=== PATIENT | male | born 1960 | race Caucasian/White ===

== ENCOUNTER 2022-08-31 11:07 | Outpatient (CLI) | payer MEDICAID, SELFPAY ==
[2022-08-31 18:41] LABS: Free T4 Free Thyroxine* 0.76 ng/dL (0.70-1.85)
== END 2022-08-31 11:08 | disposition home or self-care (01) ==
LOC: LONREF 11:08
PROVIDERS: PCP Family Medicine; Visit Provider Family Medicine
DX: E03.9 Hypothyroidism, unspecified (principal)
CPT/HCPCS: 84439; 84443

== ENCOUNTER 2023-12-23 09:27 | Outpatient (CLI) | payer MEDICAID, SELFPAY | END 2023-12-23 09:28 | disposition home or self-care (01) | PROVIDERS: PCP Family Medicine; Visit Provider Family Medicine | DX: R53.83 Other fatigue (principal); E03.9 Hypothyroidism, unspecified; Z12.5 Encounter for screening for malignant neoplasm of prostate | CPT/HCPCS: 80053; 84439; 84443; G0103 ==

== ENCOUNTER 2024-09-19 10:53 | Outpatient (CLI) | payer MEDICAID, SELFPAY | END 2024-09-19 10:54 | disposition home or self-care (01) | PROVIDERS: PCP Family Medicine; Visit Provider Family Medicine | DX: R53.83 Other fatigue (principal); E03.9 Hypothyroidism, unspecified; F33.1 Major depressive disorder, recurrent, moderate; M54.50 Low back pain, unspecified | CPT/HCPCS: 80048; 84439; 84443; 87086 ==

== ENCOUNTER 2024-12-26 18:04 | Emergency (ER) | payer MEDICAID, SELFPAY ==
--- OUTSIDE RECORDS SUMMARY | 2021-08-20 11:01 | XMS_ITS | Continuity of Care Document ---
Author Organization [facility] Address [address] [place] [address] Phone Care Team Providers Care Nutrition Intern Name Role Phone Will Luiz SPAULDING Unavailable Unavailabl e Medications Medication Instructions Dosage Effective Dates (start - stop) Status Comments Percocet 5 mg-325 mg Tab take 1 tablet by ORAL route every 4-6 hours as needed for pain - Active SYNTHROID (unknown strength) Not Available - Active Procedures Procedure Date INJECT SPINE C/T-Office FLUOROGUIDE FOR SPINE INJ Lidocaine injection Betamethasone acet&sod ph Omnipaque 240 20ml OFFICE/OUTPATIENT VISIT, EST INJECT SPINE C/T-Office FLUOROGUIDE FOR SPINE INJ Lidocaine injection Omnipaque 240 20ml Betamethasone acet&sod ph OFFICE/OUTPATIENT VISIT, EST RF Lumbar Or Sacral 1st L RF Lumbar/Sacral 2nd Leve Lidocaine injection Inj midazolam hydrochlori Fentanyl citrate injecito FLUOROGUIDE FOR SPINE INJECT MOD CS BY SAME PHYS, 5 YRS + OFFICE/OUTPATIENT VISIT, EST RF Lumbar Or Sacral 1st L RF Lumbar/Sacral 2nd Leve FLUOROGUIDE FOR SPINE INJECT MOD CS BY SAME PHYS, 5 YRS + Inj midazolam hydrochlori Fentanyl citrate injecito Dexamethasone sodium phos Lidocaine injection RF Lumbar/Sacral 2nd Level OFFICE/OUTPATIENT VISIT, EST Injection, bupivicaine hy Facet Inj Lumbar Facet Inj Lumbar 2nd Lvl Facet Inj Lumbar 3rd Lvl FLUOROGUIDE FOR SPINE INJ Omnipaque 240 20ml Facet Jt Inj Lumb BILATER 2nd Lvl MARCOS Facet Jt Lumb 3rd Lvl MARCOS Facet Jt Lumb FLUOROGUIDE FOR SPINE INJ Injection, bupivicaine hy Omnipaque 240 20ml Lidocaine injection OFFICE/OUTPATIENT VISIT, EST OFFICE/OUTPATIENT VISIT, EST OFFICE/OUTPATIENT VISIT, EST INJ FORAMEN EPIDURAL LS INJ FORAMEN EPIDURAL ADD-ON Omnipaque 240 20ml Lidocaine injection Betamethasone acet&sod phosp FLUOROGUIDE FOR SPINE INJECT OFFICE/OUTPATIENT VISIT, EST OFFICE/OUTPATIENT VISIT, EST OFFICE/OUTPATIENT VISIT, EST OFFICE/OUTPATIENT VISIT, EST OFFICE/OUTPATIENT VISIT, EST FLUOROGUIDE FOR SPINE INJECT Betamethasone acet&sod phosp Lidocaine injection Omnipaque 240 20ml INJECT SPINE C/T-Office Lidocaine injection Betamethasone acet&sod phosp Omnipaque 240 20ml INJECT SPINE L/S (CD) FLUOROGUIDE FOR SPINE INJECT OFFICE/OUTPATIENT VISIT, EST OFFICE/OUTPATIENT VISIT, EST OFFICE/OUTPATIENT VISIT, EST OFFICE/OUTPATIENT VISIT, EST OFFICE/OUTPATIENT VISIT, EST OFFICE/OUTPATIENT VISIT, EST OFFICE/OUTPATIENT VISIT, EST OFFICE/OUTPATIENT VISIT, EST OFFICE/OUTPATIENT VISIT, EST [employer] INJECT SPINE C/T FLUOROGUIDE FOR SPINE INJECT OFFICE/OUTPATIENT VISIT, EST [employer] INJECT SPINE C/T FLUOROGUIDE FOR SPINE INJECT [employer] Advance Directives Directive Yes / No Effective Date File Name No Information Encounters Encounter Description Practice Location Reason(s) For Visit Diagnoses Date Provider Providers Copied on Encounter [facility], [address] [place] [address], [id number] , [phone] [facility] [place] No Information 2 Will Luiz. [address] [place] [address], [id number], [place]. tel:[phone] [facility], [address] [place] [address], [id number] , [place] tel:[phone] [facility] Cervicalgia 2 Will Luiz. [address] [place] [address], [id number], [place]. tel:[phone] Referring Provider: Luiz Jha [address] [place] [address] [place], [address] . tel:[phone] OFFICE/OUTPA TIENT VISIT, EST [facility], [address] [place] [address], [id number] , [place] tel:[phone] [facility] neck pain (chief complaint) low back pain (chief complaint) CervicalgiaDegene ration of lumbar or lumbosacral intervertebral disc 2 Will Luiz. [address] [place] [address], [id number], [place]. tel:[phone] Referring Provider: Luiz Jha [address] [place], [address] . tel:[phone] [facility], [address] [place] [address] [place], [id number] , [place] tel:[phone] [facility] [place] Cervicalgia 2 Will Luiz. [address] [place] [address], [id number], [place]. [phone] Referring Provider: Luiz Jha, [address] [place] [address] [place], [address] . tel:[phone] OFFICE/OUTPA TIENT VISIT, [facility], [address] [place] [address] [place], [id number] , [place] tel: [phone] [facility] [place] low back pain (chief complaint) neck pain (chief complaint) Degeneration of lumbar or lumbosacral intervertebral discCervicalgia 2 Will Luiz. [address] [place] [address], [id number], [place]. tel:[phone] Referring Provider: Luiz Jha, [address] [place] [address] [place], [address] . tel:[phone] [facility], [address] [place] [address] [place], [id number] , [place] tel:[phone] [facility] [place] Degeneration of lumbar or lumbosacral intervertebral disc 2 Will Luiz. [address] [place] [address], [id number], [place]. tel:[phone] Referring Provider: Luiz Jha, [address] [place] [address] [place], [address] . tel:[phone] OFFICE/OUTPA TIENT VISIT, [facility], [address] [place] [address] [place], [id number] , [place] tel:[phone] [facility] [place] low back pain (chief complaint) neck pain (chief complaint) Degeneration of lumbar or lumbosacral intervertebral discCervicalgia 2 Will Luiz. [address] [place] [address], [id number], [place]. tel:[phone] Referring Provider: Luiz Jha, [address] [place] [address] [place], [address] . tel:[phone] [facility], [address] [place] [address], [id number] , [place] tel:[phone] [facility] [place] Degeneration of lumbar or lumbosacral intervertebral disc 2 Will Luiz. [address] [place] [address], [id number], [place]. [phone] Referring Provider: Luiz Jha, [address] [place] [address] [place], [address] . tel:[phone] OFFICE/OUTPA TIENT VISIT, [facility], [address] [place] [address] [place], [id number] , [place] tel:[phone] [facility] low back pain (chief complaint) neck pain (chief complaint) Degeneration of lumbar or lumbosacral intervertebral disc 2 Will Luiz. [address] [place] [address], [id number], [place]. tel:[phone] Referring Provider: Luiz Jha, [address] [place] [address] [place], [address] . tel:[phone] [facility], [address] [place] [address], [id number] , [place] tel: [phone] [facility] [place] Degeneration of lumbar or lumbosacral intervertebral disc 2 Will Luiz. [address] [place] [address], [id number], [place]. tel:[phone] Referring Provider: Luiz Jha, [address] [place] [address] [place], [address] . tel:[phone] [facility], [address] [place] [address], [id number] , [place] tel:[phone] [facility] Degeneration of lumbar or lumbosacral intervertebral discLumbago 2 Will Luiz. [address] [place] [address], [id number], [place]. tel:[phone] Referring Provider: Luiz Jha, [address] [place], [place] [address], [address] . tel:[phone] OFFICE/OUTPA TIENT VISIT, [facility], [address] [place] [address] [place], [id number] , [place] tel:[phone] [facility] low back pain (chief complaint) neck pain (chief complaint) CervicalgiaDegene ration of cervical intervertebral discLumbagoDegene ration of lumbar or lumbosacral intervertebral disc 2 Will Luiz. [address] [place] [address], [id number], [place]. tel:[phone] Referring Provider: Luiz Jha, [address] [place] [address] [place], [address] . tel:[phone] OFFICE/OUTPA TIENT VISIT, [facility], [address] [place] [address] [place], [id number] , [place] tel:[phone] [facility] No Information 2 Will Luiz. [address] [place] [address], [id number], [place]. tel:[phone] Referring Provider: Luiz Jha, [address] [place] [address] [place], [address] . tel:[phone] [facility], [address] [place] [address] [place], [id number] , [place] tel:[phone] [facility] low back pain (chief complaint) neck pain (chief complaint) CervicalgiaDegene ration of cervical intervertebral discLumbagoDegene ration of lumbar or lumbosacral intervertebral disc 2 Will Luiz. [address] [place] [address], [id number], [place]. tel:[phone] OFFICE/OUTPA TIENT VISIT, [facility], [address] [place] [address], [id number] , [place] tel:[phone] [facility] low back pain (chief complaint) neck pain (chief complaint) Degeneration of cervical intervertebral discLumbagoDegene ration of lumbar or lumbosacral intervertebral discCervicalgia 2 1 Will Luiz. [place] [place], [id number], [place]. tel:[phone] Referring Provider: Luiz Jha, [address] [place] [address] [place], [address] . tel:[phone] OFFICE/OUTPA TIENT VISIT, [facility], [address] [place] [address] [place], [id number] , [place] tel:[phone] [facility] low back pain (chief complaint) neck pain (chief complaint) LumbagoDegenerati on of cervical intervertebral discLumbago 1 Will Luiz. [address] [place] [address] [place], [id number], [place]. tel:[phone] Referring Provider: Luiz Jha, [address] [place] [address] [place], [address] . tel:[phone] OFFICE/OUTPA TIENT VISIT, [facility], [address] [place], [place] [address], [id number] , [place] tel:[phone] [facility] low back pain (chief complaint) LumbagoDegenerati on of cervical intervertebral disc Mar-0 1 Will Luiz. [address] [facility] [place], [id number], [place]. tel:[phone] Referring Provider: Luiz Jha, [address] [place] [address] [place], [address] . tel:[phone] OFFICE/OUTPA TIENT VISIT, [facility], [address] [place], [place] [address], [id number] , [place] [phone] [facility] low back pain (chief complaint) Degeneration of cervical intervertebral discLumbago 1 Will Luiz. [address] [place] [address], [id number], [place]. tel:[phone] Referring Provider: Luiz Jha, [address] [place] [address] [place], [address] . tel:[phone] OFFICE/OUTPA TIENT VISIT, [facility], [address] [place] [address] [place], [id number] , [place] tel:[phone] [facility] low back pain (chief complaint) Degeneration of cervical intervertebral discLumbago 1 Will Luiz. [address] [place] [address], [id number], [place]. [phone] Referring Provider: Luiz Jha, [address] [place] [address] [place], [address] . tel:[phone] OFFICE/OUTPA TIENT VISIT, [facility], [address] [place] [address], [id number] , [place] tel:[phone] [facility] low back pain (chief complaint) neck pain (chief complaint) Degeneration of cervical intervertebral discLumbagoDegene ration of lumbar or lumbosacral intervertebral disc 1 Will Luiz. [address] [place] [address], [id number], [place]. tel:[phone] Referring Provider: Luiz Jha, [address] [place] [address] [place], [address] . tel:[phone] [facility], [address] [place] [address], [id number] , [place] tel:[phone] [facility] neck pain (chief complaint) Degeneration of cervical intervertebral discLumbago 1 Will Luiz. [address] [place] [address], [id number], [place]. tel:[phone] Referring Provider: Luiz Jha, [address] [place] [address] [place], [address] . tel:[phone] [facility], [address] [place] [address] [place], [id number] , [place] tel:[phone] [facility] bilateral low back pain (chief complaint) Degeneration of lumbar or lumbosacral intervertebral disc 1 Will Luiz. [address] [place] [address], [id number], [place]. [phone] Referring Provider: Luiz Jha, [address] [place] [address], [address] . tel:[phone] OFFICE/OUTPA TIENT VISIT, [facility], [address] [place] [address], [id number] , [place] tel:[phone] [facility] low back pain (chief complaint) neck pain (chief complaint) LumbagoCervicalgi aDegeneration of lumbar or lumbosacral intervertebral discNeck sprain 1 Will Luiz. [address] [place] [address], [id number], [place]. [phone] Referring Provider: Luiz Jha, [address] [place] [address], [address] . tel:[phone] OFFICE/OUTPA TIENT VISIT, [facility], [address] [place] [address], [id number] , [place] tel:[phone] [facility] low back pain (chief complaint) LumbagoCervicalgi a 0 Will Luiz. [address] [place] [address], [id number], [place]. [phone] Referring Provider: Clarissa Diggs, [address] [place] [address], [address] . tel:[phone] OFFICE/OUTPA TIENT VISIT, [facility], [address] [place] [address], [id number] , [place] tel:[phone] [facility] low back pain (chief complaint) neck pain (chief complaint) LumbagoCervicalgi a 0 Will Luiz. [address] [place] [address], [id number], [place]. tel:[phone] Referring Provider: Clarissa Diggs, [address] [place] [address], [address] . tel:[phone] OFFICE/OUTPA TIENT VISIT, [facility], [address] [place] [address], [id number] , [place] [phone] [facility] low back pain (chief complaint) neck pain (chief complaint) LumbagoCervicalgi a Apr-201 0 Will Luiz. [address] [place] [address], [id number], [place]. tel:[phone] OFFICE/OUTPA TIENT VISIT, [facility], [address] [place] [address], [id number] , [place] tel:[phone] [facility] low back pain (chief complaint) neck pain (chief complaint) LumbagoCervicalgi aDegeneration of lumbar or lumbosacral intervertebral disc Sep-0 7-201 0 Will Luiz. [address] [place] [address], [id number], [place]. tel:[phone] Referring Provider: Luiz Jha, [address] [place] [address], [address] . tel:[phone] OFFICE/OUTPA TIENT VISIT, [facility], [address] [place] [address], [id number] , [place] tel:[phone] [facility] low back pain (chief complaint) LumbagoDegenerati on of lumbar or lumbosacral intervertebral disc Jan- 2-201 0 Will Luiz. [address] [place] [address], [id number], [place]. tel:[phone] OFFICE/OUTPA TIENT VISIT, [facility], [address] [place] [address], [id number] , [place] tel:[phone] [facility] bilateral low back pain (chief complaint) Degeneration of lumbar or lumbosacral intervertebral discLumbago Apr-0 6-[address] [place] [address], [id number], [place]. tel:[phone] OFFICE/OUTPA TIENT VISIT, EST [facility], [address] [place] [address] [place], [id number] , [place] tel:[phone] [facility] [place] bilateral low back pain (chief complaint) LumbagoDegenerati on of lumbar or lumbosacral intervertebral disc 0 Will Luiz. [address] [place] [address], [id number], [place]. tel:[phone] OFFICE/OUTPA TIENT VISIT, [facility], [address] [place] [address] [place], [id number] , [place] tel:[phone] [facility] [place] No Information 0 Will Liuz. [address] [place] [address], [id number], [place]. tel:[phone] [place] [address] [facility], [address] [place] [address], [id number] , [place] tel:[phone] [facility] right cervical spine pain (chief complaint) Cervicalgia 0 Will Luiz. [address] [place] [address], [id number], [place]. tel:[phone] OFFICE/OUTPA TIENT VISIT, [facility], [address] [place] [address] [place], [id number] , [place] [phone] [facility] [place] chronic pain (chief complaint) Neck sprainCervicalgia Degeneration of lumbar or lumbosacral intervertebral discDegeneration of cervical intervertebral discLumbago 0 Will Luiz. [place], [id number], [place]. tel:[phone] [facility], [address] [place] [address], [id number] , [place] tel:[phone] [facility] chronic pain (chief complaint) Neck sprainLumbagoDege neration of lumbar or lumbosacral intervertebral disc 9 Will Luiz. [address] [place] [address], [id number], [place]. tel:[phone] [facility], [address] [place] [address], [id number] , [place] [phone] [facility] bilateral neck pain (chief complaint) Degeneration of cervical intervertebral discDegeneration of cervical intervertebral disc Dec-0 3-200 9 Will Luiz. [address] [place] [address], [id number], [place]. tel:[phone] [place] [address] [facility], [address] [place] [address], [id number] , [place] [phone] [facility] chronic pain (chief complaint) Neck sprainCervicalgia Degeneration of cervical intervertebral disc Nov-2 5-200 9 Will Luiz. [address] [place] [address], [id number], [place]. tel:[phone] [place] [address], [address] [place] [address], [id number] , [place] tel:[phone] [facility] bilateral low back pain (chief complaint) LumbagoDegenerati on of lumbar or lumbosacral intervertebral disc May- 0-200 9 Will Luiz. [address] [place] [address], [id number], [place]. tel:[phone] Referring Provider: Luiz Jha, [address] [place] [address] [place], [address] . tel:[phone] [facility], [address] [place] [address], [id number] , [place] tel:[phone] [facility] left low back pain (chief complaint) bilateral neck pain (chief complaint) Displacement of lumbar intervertebral disc without myelopathyCervica lgiaDisplacement of cervical intervertebral disc without myelopathyLumbago Sep-2 9-200 9 Will Luiz. [address] [place] [address], [id number], [place]. tel:[phone] Referring Provider: Luiz Jha, [address] [place] [address] [place], [address] . tel:[phone] [facility], [address] [place], [place] [address] [place], [id number] , [place] tel:[phone] [facility] bilateral low back pain (chief complaint) neck pain (chief complaint) Dyspnea and respiratory abnormalitiesAnxi ety state, unspecifiedAcquir ed hypothyroidismDeg eneration of lumbar or lumbosacral intervertebral discLumbagoCervic algia 200 9 No Information Family History Family Member Type Diagnosis Age At Onset No Information Payers Payer name Insurance type Covered green party ID Authoriza tion(s) [facility] [id number] Social History Type Description Quantity Date Captured Comments Sex Male Smoking Status No Information Chief Complaint And Reason For Visit No Information Reason For Referral Reason For Referral No Information History Of Present Illness Encounter Date Complaint History Of Prese nt Illness No Information Functional Status Date Functional Assessmen t No Information Instructions Date Instruction Additional Infor mation Continue current medication Reviewed medications Medications counted, patient is on track. Continue current medication Reviewed medications Medications counted, patient is on track. Continue current medication Medications counted, patient is on track. Continue current medication Continue current medication Reviewed medications Medications counted, patient is on track. Continue current medication Reviewed medications Medications counted, patient is on track. Continue current medication Reviewed medications Medications counted, patient has self-escalated dose. Reviewed medications Medications counted, patient is on track. Continue current medication Reviewed medications Medications counted, patient is on track. Continue current medication Reviewed medications Medications counted, patient is on track. Continue current medication Reviewed medications Medications counted, patient is on track. Continue current medication Reviewed medications Medications counted, patient has self-escalated dose. Continue current medication Activity as tolerated New medication is prescribed Activity as tolerated Assessments Type Assessment Date No Information Patient Care Teams Name Effective Dates (start - stop) Status Members No Information
--- OUTSIDE RECORDS SUMMARY | 2021-08-20 11:01 | XMS_ITS | Continuity of Care Document ---
Author Organization 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, [address] [place] [address], [id number] , [phone] [facility] [place] No Information 2 Will Luiz. [address] [place] [address], [id number], [place]. tel:[phone] [facility], [address] [place] [address], [id number] , [place] tel:[phone] [facility] Cervicalgia 2 Will Luiz. [address] [place] [address], [id number], [place]. tel:[phone] Referring Provider: Luiz Jha [address] [place] [address] [place], [address] . tel:[phone] OFFICE/OUTPA TIENT VISIT, EST [facility], [address] [place] [address], [id number] , [place] tel:[phone] [facility] neck pain (chief complaint) low back pain (chief complaint) CervicalgiaDegene ration of lumbar or lumbosacral intervertebral disc 2 Will Luiz. [address] [place] [address], [id number], [place]. tel:[phone] Referring Provider: Luiz Jha [address] [place], [address] . tel:[phone] [facility], [address] [place] [address] [place], [id number] , [place] tel:[phone] [facility] [place] Cervicalgia 2 Will Luiz. [address] [place] [address], [id number], [place]. [phone] Referring Provider: Luiz Jha, [address] [place] [address] [place], [address] . tel:[phone] OFFICE/OUTPA TIENT VISIT, [facility], [address] [place] [address] [place], [id number] , [place] tel:[phone] [facility] [place] low back pain (chief complaint) neck pain (chief complaint) Degeneration of lumbar or lumbosacral intervertebral discCervicalgia 2 Will Luiz. [address] [place] [address], [id number], [place]. tel:[phone] Referring Provider: Luiz Jha, [address] [place] [address] [place], [address] . tel:[phone] [facility], [address] [place] [address] [place], [id number] , [place] tel:[phone] [facility] [place] Degeneration of lumbar or lumbosacral intervertebral disc 2 Will Luiz. [address] [place] [address], [id number], [place]. tel:[phone] Referring Provider: Luiz Jha, [address] [place] [address] [place], [address] . tel:[phone] OFFICE/OUTPA TIENT VISIT, [facility], [address] [place] [address] [place], [id number] , [place] tel:[phone] [facility] [place] low back pain (chief complaint) neck pain (chief complaint) Degeneration of lumbar or lumbosacral intervertebral discCervicalgia 2 Will Luiz. [address] [place] [address], [id number], [place]. tel:[phone] Referring Provider: Luiz Jha, [address] [place] [address] [place], [address] . tel:[phone] [facility], [address] [place] [address], [id number] , [place] tel:[phone] [facility] [place] Degeneration of lumbar or lumbosacral intervertebral disc 2 Will Luiz. [address] [place] [address], [id number], [place]. [phone] Referring Provider: Luiz Jha, [address] [place] [address] [place], [address] . tel:[phone] OFFICE/OUTPA TIENT VISIT, [facility], [address] [place] [address] [place], [id number] , [place] tel:[phone] [facility] low back pain (chief complaint) neck pain (chief complaint) Degeneration of lumbar or lumbosacral intervertebral disc 2 Will Luiz. [address] [place] [address], [id number], [place]. tel:[phone] Referring Provider: Luiz Jha, [address] [place] [address] [place], [address] . tel:[phone] [facility], [address] [place] [address], [id number] , [place] tel:[phone] [facility] [place] Degeneration of lumbar or lumbosacral intervertebral disc 2 Will Luiz. [address] [place] [address], [id number], [place]. tel:[phone] Referring Provider: Luiz Jha, [address] [place] [address] [place], [address] . tel:[phone] [facility], [address] [place] [address], [id number] , [place] tel:[phone] [facility] [place] Degeneration of lumbar or lumbosacral intervertebral discLumbago 2 Will Luiz. [address] [place] [address], [id number], [place]. tel:[phone] Referring Provider: Luiz Jha, [address] [place], [place] [address], [address] . tel:[phone] OFFICE/OUTPA TIENT VISIT, [facility], [address] [place] [address] [place], [id number] , [place] tel:[phone] [facility] low back pain (chief complaint) neck pain (chief complaint) CervicalgiaDegene ration of cervical intervertebral discLumbagoDegene ration of lumbar or lumbosacral intervertebral disc 2 Will Luiz. [address] [place] [address], [id number], [place]. tel:[phone] Referring Provider: Luiz Jha, [address] [place] [address] [place], [address] . tel:[phone] OFFICE/OUTPA TIENT VISIT, [facility], [address] [place] [address] [place], [id number] , [place] tel:[phone] [facility] No Information 2 Will Luiz. [address] [place] [address], [id number], [place]. tel:[phone] Referring Provider: Luiz Jha, [address] [place] [address] [place], [address] . tel:[phone] [facility], [address] [place] [address] [place], [id number] , [place] tel:[phone] [facility] low back pain (chief complaint) neck pain (chief complaint) CervicalgiaDegene ration of cervical intervertebral discLumbagoDegene ration of lumbar or lumbosacral intervertebral disc 2 Will Luiz. [address] [place] [address], [id number], [place]. tel:[phone] OFFICE/OUTPA TIENT VISIT, [facility], [address] [place] [address], [id number] , [place] tel:[phone] [facility] low back pain (chief complaint) neck pain (chief complaint) Degeneration of cervical intervertebral discLumbagoDegene ration of lumbar or lumbosacral intervertebral discCervicalgia 2 1 Will Luiz. [address] [place], [id number], [place]. tel:[phone] Referring Provider: Luiz Jha, [address] [place] [address] [place], [address] . tel:[phone] OFFICE/OUTPA TIENT VISIT, [facility], [address] [place] [address] [place], [id number] , [place] tel:[phone] [facility] low back pain (chief complaint) neck pain (chief complaint) LumbagoDegenerati on of cervical intervertebral discLumbago 1 Will Luiz. [address] [place] [address] [place], [id number], [place]. tel:[phone] Referring Provider: Luiz Jha, [address] [place] [address] [place], [address] . tel:[phone] OFFICE/OUTPA TIENT VISIT, [facility], [address] [place], [place] [address], [id number] , [place] tel:[phone] [facility] low back pain (chief complaint) LumbagoDegenerati on of cervical intervertebral disc Mar-0 1 Will Luiz. [address] [facility] [place], [id number], [place]. tel:[phone] Referring Provider: Luiz Jha, [address] [place] [address] [place], [address] . tel:[phone] OFFICE/OUTPA TIENT VISIT, [facility], [address] [place], [place] [address], [id number] , [place] [phone] [facility] low back pain (chief complaint) Degeneration of cervical intervertebral discLumbago 1 Will Luiz. [address] [place] [address], [id number], [place]. tel:[phone] Referring Provider: Luiz Jha, [address] [place] [address] [place], [address] . tel:[phone] OFFICE/OUTPA TIENT VISIT, [facility], [address] [place] [address] [place], [id number] , [place] tel:[phone] [facility] low back pain (chief complaint) Degeneration of cervical intervertebral discLumbago 1 Will Luiz. [address] [place] [address], [id number], [place]. [phone] Referring Provider: Luiz Jha, [address] [place] [address] [place], [address] . tel:[phone] OFFICE/OUTPA TIENT VISIT, [facility], [address] [place] [address], [id number] , [place] tel:[phone] [facility] low back pain (chief complaint) neck pain (chief complaint) Degeneration of cervical intervertebral discLumbagoDegene ration of lumbar or lumbosacral intervertebral disc 1 Will Luiz. [address] [place] [address], [id number], [place]. tel:[phone] Referring Provider: Luiz Jha, [address] [place] [address] [place], [address] . tel:[phone] [facility], [address] [place] [address], [id number] , [place] tel:[phone] [facility] neck pain (chief complaint) Degeneration of cervical intervertebral discLumbago 1 Will Luiz. [address] [place] [address], [id number], [place]. tel:[phone] Referring Provider: Luiz Jha, [address] [place] [address] [place], [address] . tel:[phone] [facility], [address] [place] [address] [place], [id number] , [place] tel:[phone] [facility] bilateral low back pain (chief complaint) Degeneration of lumbar or lumbosacral intervertebral disc 1 Will Luiz. [address] [place] [address], [id number], [place]. [phone] Referring Provider: Luiz Jha, [address] [place] [address], [address] . tel:[phone] OFFICE/OUTPA TIENT VISIT, [facility], [address] [place] [address], [id number] , [place] tel:[phone] [facility] low back pain (chief complaint) neck pain (chief complaint) LumbagoCervicalgi aDegeneration of lumbar or lumbosacral intervertebral discNeck sprain 1 Will Luiz. [address] [place] [address], [id number], [place]. [phone] Referring Provider: Luiz Jha, [address] [place] [address], [address] . tel:[phone] OFFICE/OUTPA TIENT VISIT, [facility], [address] [place] [address], [id number] , [place] tel:[phone] [facility] low back pain (chief complaint) LumbagoCervicalgi a 0 Will Luiz. [address] [place] [address], [id number], [place]. [phone] Referring Provider: Clarissa Diggs, [address] [place] [address], [address] . tel:[phone] OFFICE/OUTPA TIENT VISIT, [facility], [address] [place] [address], [id number] , [place] tel:[phone] [facility] low back pain (chief complaint) neck pain (chief complaint) LumbagoCervicalgi a 0 Will Luiz. [address] [place] [address], [id number], [place]. tel:[phone] Referring Provider: Clarissa Diggs, [address] [place] [address], [address] . tel:[phone] OFFICE/OUTPA TIENT VISIT, [facility], [address] [place] [address], [id number] , [place] [phone] [facility] low back pain (chief complaint) neck pain (chief complaint) LumbagoCervicalgi a Apr-201 0 Will Luiz. [address] [place] [address], [id number], [place]. tel:[phone] OFFICE/OUTPA TIENT VISIT, [facility], [address] [place] [address], [id number] , [place] tel:[phone] [facility] low back pain (chief complaint) neck pain (chief complaint) LumbagoCervicalgi aDegeneration of lumbar or lumbosacral intervertebral disc Sep-0 7-201 0 Will Luiz. [address] [place] [address], [id number], [place]. tel:[phone] Referring Provider: Luzi Jha, [address] [place] [address], [address] . tel:[phone] OFFICE/OUTPA TIENT VISIT, [facility], [address] [place] [address], [id number] , [place] tel:[phone] [facility] low back pain (chief complaint) LumbagoDegenerati on of lumbar or lumbosacral intervertebral disc Jan- 2-201 0 Will Luiz. [address] [place] [address], [id number], [place]. tel:[phone] OFFICE/OUTPA TIENT VISIT, [facility], [address] [place] [address], [id number] , [place] tel:[phone] [facility] bilateral low back pain (chief complaint) Degeneration of lumbar or lumbosacral intervertebral discLumbago Apr-0 6-201 [address] [place] [address], [id number], [place]. tel:[phone] OFFICE/OUTPA TIENT VISIT, EST [facility], [address] [place] [address] [place], [id number] , [place] tel:[phone] [facility] [place] bilateral low back pain (chief complaint) LumbagoDegenerati on of lumbar or lumbosacral intervertebral disc 0 Will Luiz. [address] [place] [address], [id number], [place]. tel:[phone] OFFICE/OUTPA TIENT VISIT, [facility], [address] [place] [address] [place], [id number] , [place] tel:[phone] [facility] [place] No Information 0 Will Luiz. [address] [place] [address], [id number], [place]. tel:[phone] [place] [address] [facility], [address] [place] [address], [id number] , [place] tel:[phone] [facility] right cervical spine pain (chief complaint) Cervicalgia 0 Will Luiz. [address] [place] [address], [id number], [place]. tel:[phone] OFFICE/OUTPA TIENT VISIT, [facility], [address] [place] [address] [place], [id number] , [place] [phone] [facility] [place] chronic pain (chief complaint) Neck sprainCervicalgia Degeneration of lumbar or lumbosacral intervertebral discDegeneration of cervical intervertebral discLumbago 0 Will Luiz. [place], [id number], [place]. tel:[phone] [facility], [address] [place] [address], [id number] , [place] tel:[phone] [facility] [place] chronic pain (chief complaint) Neck sprainLumbagoDege neration of lumbar or lumbosacral intervertebral disc 9 Will Luiz. [address] [place] [address], [id number], [place]. tel:[phone] [facility], [address] [place] [address], [id number] , [place] [phone] [facility] bilateral neck pain (chief complaint) Degeneration of cervical intervertebral discDegeneration of cervical intervertebral disc Dec-0 3-200 9 Will Luiz. [address] [place] [address], [id number], [place]. tel:[phone] [place] [address] [facility], [address] [place] [address], [id number] , [place] [phone] [facility] chronic pain (chief complaint) Neck sprainCervicalgia Degeneration of cervical intervertebral disc Nov-2 5-200 9 Will Luiz. [address] [place] [address], [id number], [place]. tel:[phone] [place] [address], [address] [place] [address], [id number] , [place] tel:[phone] [facility] bilateral low back pain (chief complaint) LumbagoDegenerati on of lumbar or lumbosacral intervertebral disc May- 0-200 9 Will Luiz. [address] [place] [address], [id number], [place]. tel:[phone] Referring Provider: Luiz Jha, [address] [place] [address] [place], [address] . tel:[phone] [facility], [address] [place] [address], [id number] , [place] tel:[phone] [facility] left low back pain (chief complaint) bilateral neck pain (chief complaint) Displacement of lumbar intervertebral disc without myelopathyCervica lgiaDisplacement of cervical intervertebral disc without myelopathyLumbago Sep-2 9-200 9 Will Luiz. [address] [place] [address], [id number], [place]. tel:[phone] Referring Provider: Luiz Jha, [address] [place] [address] [place], [address] . tel:[phone] [facility], [address] [place], [place] [address]ms [place], [id number] , [place] tel:[phone] [facility] [place] bilateral low back pain (chief complaint) neck pain (chief complaint) Dyspnea and respiratory abnormalitiesAnxi ety state, unspecifiedAcquir ed hypothyroidismDeg eneration of lumbar or lumbosacral intervertebral discLumbagoCervic algia 200 9 No Information Family History Family Member Type Diagnosis Age At Onset No Information Payers Payer name Insurance type Covered democrat ID Authoriza tion(s) [facility] [id number] Social History Type Description Quantity Date Captured [...] medications Medications counted, patient is on track. Medications counted, patient is on track. Reviewed medications Continue current medication Continue current medication Medications counted, patient is on track. Continue current medication Continue current medication Reviewed medications Medications counted, patient is on track. Medications counted, patient is on track. Reviewed medications Continue current medication Medications counted, patient has self-escalated dose. Reviewed medications Continue current medication Reviewed medications Medications counted, patient is on track. Reviewed medications Medications counted, patient is on track. Continue current medication Continue current medication Reviewed medications Medications counted, patient is on track. Medications counted, patient is on track. Reviewed medications Continue current medication Reviewed medications Medications counted, patient has self-escalated dose. Continue current medication Continue current medication Activity as tolerated New medication is prescribed Activity as tolerated Assessments Type Assessment Date No Information Patient Care Teams Name Effective Dates (start - stop) Status Members No Information
[2024-12-26 18:18] VITALS: BP 173/101; PULSE 54; RESP 20; TEMP 36.4; O2SAT 99; BMI 22.0
--- NOTE | 2024-12-26 18:29 | CT_ITS ---
Patient: THOM BOO Facility:?[facility] Patient ID:?[id number] Site Patient ID:?[id number]. Site :?[id number] Study:?CT-Abdomen/Pelvis W/O-12/26/2024 7:02:27 PM Ordering Physician:Jasmyn Fitzpatrick Final Report: INDICATION: .LEFT FLANK PAIN TECHNIQUE: CT abdomen and pelvis without contrast. COMPARISON: None. FINDINGS: Lower chest: The visualized lower lungs are aerated. No pleural or pericardial effusion. ABDOMEN: Liver: Normal attenuation. Gallbladder and biliary: Cholelithiasis in an otherwise normal gallbladder. Normal caliber bile ducts. Spleen: Normal size and attenuation. Pancreas: The noncontrast pancreas is homogeneous in attenuation without peripancreatic inflammatory changes or ductal dilatation. Adrenal glands: Normal adrenal glands. Kidneys and ureters: Mild left-sided hydroureteronephrosis secondary to a 2 millimeter stone within the distal left ureter. Additional bilateral punctate nonobstructing renal stones. GI tract: The stomach is relatively decompressed. Normal caliber small and large bowel loops. Appendix is not definitively visualized. Vascular structures: Normal caliber aorta with atherosclerotic calcifications. Lymph nodes: No lymphadenopathy in the abdomen or pelvis by size criteria. Peritoneum: No free air, free fluid, or focal drainable fluid collection. PELVIS: Genitourinary system: Circumferential wall thickening of the urinary bladder. Normal-sized prostate. SKELETAL STRUCTURES AND SOFT TISSUES: Old right-sided rib fractures. Lumbar spondylosis. SI joint arthrosis. IMPRESSION: 1. Mild left-sided hydroureteronephrosis secondary to a 2 millimeter stone within the distal left ureter. 2. Additional bilateral punctate nonobstructing renal stones. Please note that all CT scans at this facility use dose modulation, iterative reconstruction, and/or weight-based dosing when appropriate to reduce radiation dose to as low as reasonably achievable. Dictated by Raymond Bolton MD @ 12/26/2024 7:17:23 PM Signed by:?Raymond Bolton MD @12/26/2024 7:17:23 PM (Electronic Signature)
[2024-12-26] MEDS: KETOROLAC 15 MG/ML inj IVP (18:44)
[2024-12-26 19:22] LABS: Basophils Absolute Auto 0.04 K/uL (0.00-0.30); Basophils Percent Auto 0.5 % (0.0-3.0); Eosinophils Absolute Auto 0.33 K/uL (0.00-0.50); Eosinophils Percent Auto 4.4 % (0.0-7.0); Hematocrit 42.8 % (37.0-53.0); Hemoglobin* 13.8 gm/dL (13.5-17.5); Immature Granulocytes Abs Auto 0.01 K/uL (0.00-0.30); Immature Granulocytes Pct Auto 0.1 %; Lymphocytes Percent Auto 15.7 % (20-44); Mean Corpuscular HGB Conc 32 gm/dL (32-36); Mean Corpuscular Hemoglobin 31 pg (26-34); Mean Corpuscular Volume 96 fL (80-100); Monocytes Percent Auto 11.1 % (0.0-11.0); Neutrophils Absolute Auto 5.17 K/uL (1.7-7.0); Neutrophils Percent Auto 68.2 % (42.0-72.0); Platelet Count* 280 K/uL (140-440); Red Blood Count 4.46 m/uL (4.30-5.90); White Blood Count* 7.58 K/uL (4.50-11.00)
[2024-12-26 19:23] LABS: Chloride* 105 mmol/L (96-114); Potassium* 4.3 mmol/L (3.6-5.1); Slide Review Reflex No; Sodium* 138 mmol/L (135-149)
[2024-12-26 19:26] LABS: Anion Gap 8 mEq/L (7-15); Blood Urea Nitrogen* 30 mg/dL (7-30); Calcium* 9.7 mg/dL (8.4-10.6); Carbon Dioxide* 25 mmol/L (20-32); Creatinine* 1.5 mg/dL (0.5-1.5); Est. Creatinine Clearance* 52.39; Estimated Glomerular Filt Rate 52 ml/min; Glucose* 94 mg/dL (60-115)
--- NOTE | 2024-12-26 19:27 | ED_ITS ---
HPI - General Adult General Date Seen: 12/26/24 Chief complaint: Back Injury/Pain Stated complaint: Kidney pain, needs CT Time Seen by Provider: 12/26/24 18:24 Source: patient Mode of arrival: ambulatory Limitations: no limitations History of Present Illness HPI narrative: Patient is a 64-year-old male presenting for left flank pain. States the flank pain started suddenly earlier today around noon. Did also some mild abdominal cramping that has since resolved. Has never had pain like this before describes as a sharp 7/10 constant pain. He does have chronic back issues but this pain feels different. States his feels like it is hard to sit still due to the pain. Has not noticed any dysuria, hematuria, fevers, chills, chest pain, shortness of breath, diarrhea, constipation, headache, vision changes. Initially went to urgent care and was sent here. There is no signs of UTI but he did have a small amount of blood in his urine. Took Tylenol ibuprofen for pain without much im provement. No other concerns noted. Related Data Previous Rx's ?Medication ?Instructions ?Recorded citalopram 40 mg tablet 40 mg PO DAILY #90 tabs 12/03 07/27 cyclobenzaprine 10 mg tablet 10 mg PO QHS PRN muscle s pasm #60 01/25/24 tabs meloxicam 15 mg tablet 15 mg PO DAILY #90 tabs 03/05 11/24 zolpidem 10 mg tablet 10 mg PO QHS PRN insomnia #3 0 tabs 09/10/24 levothyroxine 100 mcg tablet 100 mcg PO QDAY #90 tabs 09/20/24 tramadol 50 mg tablet See Rx Instructions .Route 0 10/29/24 .COMPLEX #180 tabs ketorolac 10 mg tablet 10 mg PO Q6H PRN pain #20 ta bs 12/26/24 tamsulosin 0.4 mg capsule 0.4 mg PO DAILY #7 caps 12/03 11/25 Allergies Allergy/AdvReac Type Severity Reaction Status Date / Time No Known Drug Allergies Allergy Verified 12/26/24 16:21 Review of Systems Status of ROS: Reports: 10 or more systems reviewed and unremarkable except as noted in History and below [facility] Medical History Fatigue ?R53.83 - Other fatigue (ICD-10) Hypothyroidism ?E03.9 - Hypothyroidism, unspecified (ICD-10) Depression ?F32.A - Depression, unspecified (ICD-10) Chronic back pain ?M54.9 - Dorsalgia, unspecified (ICD-10) ?G89.29 - Other chronic pain (ICD-10) Insomnia ?G47.00 - Insomnia, unspecified (ICD-10) Surgical History Status post tonsillectomy and adenoidectomy ?Z90.89 - Acquired absence of other organs (ICD-10) Status post appendectomy ?Z90.49 - Acquired absence of other specified parts of digestive tract (ICD- 10) Status post open reduction and internal fixation (ORIF) of fracture ?Z98.890 - Other specified postprocedural states (ICD-10) ?Z87.81 - Personal history of (healed) traumatic fracture (ICD-10) Status post shoulder surgery ?Z98.890 - Other specified postprocedural states (ICD-10) Family History Other Diabetes Thyroid disease Social History What is your current living situation?: I presently have a place to live In the past 12 months, utilities in danger of being shut off: no In past 12 months, lack of transportation kept you from medical appts, meetings, work, or getting things needed for daily living: no In the past 12 mos, have been you worried that your food would run out before you had money to buy more?: never true In the past 12 mos, the food you bought just didn't last and you didn't have money to buy more?: never true Smoking Status: Former smoker How often does anyone, including family, friends and others, physically hurt you : never How often does anyone, including family, friends and others, insult or talk down to you: never How often does anyone, including family, friends and others, threaten you with harm: never How often does anyone, including family, friends and others, scream or curse at you: never Exam Narrative: Exam Narrative: Const: Well-nourished, Well-developed, in moderate distress Eyes: PERRL, no conjunctival injection, and symmetrical lids HENT: Atraumatic external nose and ears. Moist mucous membranes. Neck: Symmetric, trachea midline, No thyromegaly. CVS: RRR, No murmurs or gallops. Peripheral pulses 2+ and equal in all extremities RESP: Unlabored respiratory effort. Clear to auscultation bilaterally. GI: Nontender/Nondistended, No rebound or guarding. Left CVA tenderness MSK:Extremities w/o deformity, Normal Active ROM Skin: Warm, Dry. No rashes or lesions. Neuro: Normal Muscle tone, No focal neurological deficits. Psych: Awake, Alert, & Oriented x3. Appropriate mood and affect. Const: Vital Signs, click to edit/add: Vital Signs - 24 hr 12/26/24 18:18 Temperature 97.6 F Pulse Rate [Pulse Oximeter] 54 L Respiratory Rate 20 Blood Pressure [Le ft Upper Arm] 173/101 H Pulse Oximetry 99 Oxygen Delivery Me thod Room Air Course Vital Signs Vital signs: Initial Vital Signs Temperature 97.6 F 12/26/24 18:18 Temperature Source Temporal Artery Scan 12/26/24 18:18 Pulse Rate 54 L 12/26/24 18:18 Respiratory Rate 20 12/26/24 18:18 Blood Pressure 173/101 H 12/26/24 18:18 Blood Pressure Mean 125 H 12/26/24 18:18 Blood Pressure Position Sitting 12/26/24 18:18 Pulse Oximetry 99 12/26/24 18:18 Oxygen Delivery Method Room Air 12/26/24 18:18 Vital Signs Temperature 97.6 F 12/26/24 18:18 Pulse Rate 54 L 12/26/24 18:18 Respiratory Rate 20 12/26/24 18:18 Blood Pressure 173/101 H 12/26/24 18:18 Pulse Oximetry 99 12/26/24 18:18 Oxygen Delivery Method Room Air 12/26/24 18:18 Temperature 97.6 F 12/26/24 18:18 Pulse Rate 54 L 12/26/24 18:18 Respiratory Rate 20 12/26/24 18:18 Blood Pressure 173/101 H 12/26/24 18:18 Pulse Oximetry 99 12/26/24 18:18 Oxygen Delivery Method Room Air 12/26/24 18:18 Medications Administered Medications: Discontinued Medications Generic Name Dose Route Start Last Admin Trade Name Yaron PRN Reason Stop Dose Admin Ketorolac Tromethamine 15 mg 12/26/24 18:28 12/26/24 18:44 Ketorolac 15 Mg/Ml Inj IVP 12/26/24 18:29 15 mg ONCE ONE Administration Medical Decision Making MDM Narrative Medical decision making narrative: Patient is 64-year-old male presenting for flank pain. The differential diagnosis of flank pain including vascular causes such as aortic aneurysm, renal vascular issues, aortic dissection, mesenteric ischemia, nephrolithiasis, ureter stricture, pyelonephritis, along with several other GI and gynecological/ causes. With the blood in his urine my biggest concern is a kidney stone. He also clinically appears like he has a kidney stone. I have very low concern for more severe issue such as aortic aneurysm, her dissection, mesenteric ischemia. He does have some mild abdominal cramping has since resolved is not having any current abdominal tenderness. Will do a CT scan without contrast in also recheck a CBC and a BMP. Do not believe it is necessary to recheck urine. Toradol given for pain. Lab work returned showing no acute concerning abnormalities. CT scan returned showing a 2 mm stone causing some mild hydro ureteral nephrosis. This is consistent with his symptoms. He was still having pain and morphine was given. He will be discharged with Flomax and Toradol sent to his pharmacy in oxycodone sent to [facility]. He is agreeable to this plan. Lab Data Labs: Lab Results 12/26/24 Range/Units 18:42 WBC 7.58 (4.50-11.00) K/uL RBC 4.46 (4.30-5.90) m/uL Hgb 13.8 (13.5-17.5) gm/dL Hct 42.8 (37.0-53.0) % MCV 96 (80-100) fL MCH 31 (26-34) pg MCHC 32 (32-36) gm/dL RDW Coeff of Iesha 13.0 (11.5-15.5) % Plt Count 280 (140-440) K/uL Neut % (Auto) 68.2 (42.0-72.0) % Lymph % (Auto) 15.7 L (20-44) % [place] % (Auto) 11.1 H (0.0-11.0) % Eos % (Auto) 4.4 (0.0-7.0) % Baso % (Auto) 0.5 (0.0-3.0) % Neut # (Auto) 5.17 (1.7-7.0) K/uL Lymph # (Auto) 1.20 (0.90-2.90) K/uL [place] # (Auto) 0.80 (0.00-0.90) K/UL Eos # (Auto) 0.33 (0.00-0.50) K/uL Baso # (Auto) 0.04 (0.00-0.30) K/uL Abs Immat Gran (auto) 0.01 (0.00-0.30) K/uL Imm/Tot Granulo (auto) 0.1 % Sodium 138 (135-149) mmol/L Potassium 4.3 (3.6-5.1) mmol/L Chloride 105 (96-114) mmol/L Carbon Dioxide 25 (20-32) mmol/L Anion Gap 8 (7-15) mEq/L BUN 30 (7-30) mg/dL Creatinine 1.5 (0.5-1.5) mg/dL Estimated Creat Clear 52.39 Estimated GFR 52 ml/min Glucose 94 (60-115) mg/dL Calcium 9.7 (8.4-10.6) mg/dL Imaging Data CT scan abdomen and pelvis: Attestation: I have reviewed the pertinent imaging results. Radiologist's impression: 1. Mild left-sided hydroureteronephrosis secondary to a 2 millimeter stone within the distal left ureter. 2. Additional bilateral punctate nonobstructing renal stones. Please note that all CT scans at this facility use dose modulation, iterative reconstruction, and/or weight-based dosing when appropriate to reduce radiation dose to as low as reasonably achievable. Dictated by Raymond Bolton MD @ 12/26/2024 7:17:23 PM Discharge Plan Discharge Clinical Impression: Left nephrolithiasis Patient Disposition: Home, Self-Care Condition: Improved Instructions: Kidney Stones (ED), How to Strain Your Urine (ED) Additional Instructions: I will prescribe Flomax and Toradol to your pharmacy. You can slat pickler oxycodone at [facility]. While taking Toradol do not use other NSAIDs such as ibuprofen, meloxicam or naproxen as leave the same class of drugs and can cause kidney issues have taken together. You can continue to use Tylenol. Use the Flomax daily and make sure to strain your urine until you passed the kidney stone. Prescriptions: New ketorolac 10 mg tablet 10 mg PO Q6H PRN (Reason: pain) Qty: 20 0RF Rx Instructions: maximum total duration of 5 days from all oral, intranasal, or parenteral formulations tamsulosin 0.4 mg capsule 0.4 mg PO DAILY Qty: 7 2RF No Action citalopram 40 mg tablet 40 mg PO DAILY Qty: 90 3RF cyclobenzaprine 10 mg tablet 10 mg PO QHS PRN (Reason: muscle spasm) Qty: 60 2RF meloxicam 15 mg tablet 15 mg PO DAILY Qty: 90 2RF zolpidem 10 mg tablet 10 mg PO QHS PRN (Reason: insomnia) Qty: 30 3RF levothyroxine 100 mcg tablet 100 mcg PO QDAY Qty: 90 3RF tramadol 50 mg tablet See Rx Instructions .ROUTE .COMPLEX Qty: 180 1RF Rx Instructions: 50-100 mg Q6H prn; Follow Up/Referrals: Louis Patrick MD [Primary Care Provider, Family Practice] Stand Alone Forms: [facility] Info Instructions
[2024-12-26] MEDS: TAMSULOSIN HCL 0.4 MG CAPSULE PO (19:47)
[2024-12-26 19:53] VITALS: BP 173/101; PULSE 54; RESP 20; TEMP 36.4
[2024-12-26 20:06] VITALS: BP 156/80; PULSE 90; RESP 16
== END 2024-12-26 20:07 | disposition home or self-care (01) ==
PROVIDERS: Emergency Provider Student in an Organized Health Care Education/Training Program; PCP Family Medicine
DX: N20.0 Calculus of kidney (principal)
CPT/HCPCS: 36415; 74176; 80048; 85025; 87086; 96374; 99284; A9270; J1885